=== PATIENT | male | born 1955 | race Caucasian/White ===

== ENCOUNTER 2020-01-27 05:56 | Emergency (ER) | payer MEDICARE, OTHER ==
[2020-01-27] MEDS ORDERED: Sodium Chloride 0.9% 10 ML Syringe FLUSH PRN (06:21)
[2020-01-27] MEDS ORDERED: Albuterol/Ipratropium 3.0-0.5 MG/3 ML Neb Soln NEB ONE (06:36)
--- NOTE | 2020-01-27 06:36 | EDM.PDOC ---
ED HPI GENERAL MEDICAL PROBLEM - General Chief Complaint: Respiratory Problem Stated Complaint: SOB Time Seen by Provider: 01/27/20 06:14 Source of Information: Reports: Patient, RN Notes Reviewed - History of Present Illness INITIAL COMMENTS - FREE TEXT/NARRATIVE: 64 year old male comes in very short of breath. He states this started yesterday, has become more severe during the night and this electronic specialist. He has had some nasal and sinus drainage for about the last 3 weeks but has not been coughing. Other than being short of breath he has no chest or abd pain. No fever or chills. Much more short of breath with exertion. - Related Data Allergies Allergy/AdvReac Type Severity Reaction Status Date / Time mold Allergy Cannot Verified 01/27/20 06:05 Remember Home Meds: Home Meds . [No Known Home Meds] 01/27/20 [History] Past Medical History HEENT History: Reports: Impaired Vision, Other (See Below) Other HEENT History: hearing loss, impacted cerumen, middle ear effusion, tinnitis, wear glasses, has hearing aids Cardiovascular History: Reports: High Cholesterol Respiratory History: Reports: Other (See Below) Other Respiratory History: upper respiratory infection Gastrointestinal History: Reports: Other (See Below) Other Gastrointestinal History: umbilical hernia repair Genitourinary History: Reports: Other (See Below) Other Genitourinary History: elevated PSA [employer] TECHNICIAN History: Reports: None Musculoskeletal History: Reports: Back Pain, Chronic, Other (See Below) Other Musculoskeletal History: right foot pain Neurological History: Reports: Neuropathy, Peripheral Psychiatric History: Reports: Depression Endocrine/Metabolic History: Reports: None Hematologic History: Reports: None Immunologic History: Reports: None Oncologic (Cancer) History: Reports: None Dermatologic History: Reports: Other (See Below) Other Dermatologic History: finger laceration, onchomycosis - Past Surgical History Head Surgeries/Procedures: Reports: None HEENT Surgical History: Reports: Cataract Surgery Cardiovascular Surgical History: Reports: None Respiratory Surgical History: Reports: None GI Surgical History: Reports: Colonoscopy, Other (See Below) Other GI Surgeries/Procedures: umbilical hernia Male Surgical History: Reports: None Endocrine Surgical History: Reports: None Neurological Surgical History: Reports: None Musculoskeletal Surgical History: Reports: Shoulder Surgery, Other (See Below) Other Musculoskeletal Surgeries/Procedures:: left knee surgery x 2, right lower leg surgery, right shoulder arthroscopy Oncologic Surgical History: Reports: None Dermatological Surgical History: Reports: None Social & Family History - Tobacco Use Smoking Status *Q: Former Smoker Used Tobacco, but Quit: Yes Month/Year Tobacco Last Used: 1972 - Caffeine Use Caffeine Use: Reports: Coffee - Recreational Drug Use Recreational Drug Use: No ED ROS GENERAL - Review of Systems Review Of Systems: See Below Constitutional: Denies: Fever, Chills HEENT: Reports: Sinus Problem (he has had some sinus kelsey. for the past few wks) Respiratory: Reports: Shortness of Breath, Other Cardiovascular: Reports: Dyspnea on Exertion. Denies: Chest Pain GI/Abdominal: Denies: Abdominal Pain, Hematochezia, Melena, Nausea, Vomiting Musculoskeletal: Denies: Shoulder Pain, Arm Pain, Back Pain Skin: Reports: Pallor Neurological: Reports: Dizziness. Denies: Trouble Speaking, Weakness ED EXAM, GENERAL - Physical Exam Exam: See Below General Appearance: Alert, Moderate Distress (moderate shortness of breath) Throat/Mouth: Normal Inspection Head: Atraumatic Neck: Supple Respiratory/Chest: Respiratory Distress. No: Rales, Rhonchi, Wheezing Cardiovascular: Tachycardia GI/Abdominal: Soft, Non-Tender, Distended Back Exam: No: CVA Tenderness (L), CVA Tenderness (R) Extremities: No: Pedal Edema, Leg Pain, Increased Warmth, Redness Neurological: Alert, Oriented, No Motor/Sensory Deficits Skin Exam: Warm, Dry, Pallor Course - Vital Signs Last Recorded V/S: Last Vital Signs Temp 98.3 F 01/27/20 06:06 Pulse 114 H 01/27/20 08:10 Resp 35 H 01/27/20 08:10 BP 145/103 H 01/27/20 08:10 Pulse Ox 91 L 01/27/20 08:10 - Orders/Labs/Meds Orders: Active Orders 24 hr Category Date Time Status EKG 12 Lead [EKG Documentation Completion] [] STAT Care 01/27/20 06:17 Active Oxygen Therapy Adult [Oxygen Therapy, ED] [] Care 01/27/20 06:18 Active ASDIRECTED Peripheral IV Care [RC] . DIRECTED Care 01/27/20 06:21 Active RT Aerosol Therapy [RC] ASDIRECTED Care 01/27/20 06:36 Active CULTURE BLOOD [BC] Stat Lab 01/27/20 06:30 Received Peripheral IV Insertion Adult [OM.PC] Stat Oth 01/27/20 06:21 Ordered Labs: Laboratory Tests 01/27/20 01/27/20 01/27/20 Range/Units 06:10 06:10 06:10 WBC 10.60 H (4.23-9.07) K/mm3 RBC 5.20 (4.63-6.08) M/mm3 Hgb 16.0 (13.7-17.5) gm/dl Hct 48.2 (40.1-51.0) % MCV 92.7 H (79.0-92.2) fl MCH 30.8 (25.7-32.2) pg MCHC 33.2 (32.2-35.5) g/dl RDW Std Deviation 46.9 H (35.1-43.9) fL Plt Count 240 (163-337) K/mm3 MPV 9.7 (9.4-12.3) fl Neut % (Auto) 68.0 H (34.0-67.9) % Lymph % (Auto) 20.1 L (21.8-53.1) % [place] % (Auto) 10.2 (5.3-12.2) % Eos % (Auto) 1.2 (0.8-7.0) Baso % (Auto) 0.3 (0.1-1.2) % Neut # (Auto) 7.21 H (1.78-5.38) K/mm3 Lymph # (Auto) 2.13 (1.32-3.57) K/mm3 [place] # (Auto) 1.08 H (0.30-0.82) K/mm3 Eos # (Auto) 0.13 (0.04-0.54) K/mm3 Baso # (Auto) 0.03 (0.01-0.08) K/mm3 D-Dimer, Quantitative (0.19-0.50) mg/L Sodium 142 (136-145) mEq/L Potassium 4.2 (3.5-5.1) mEq/L Chloride 105 (98-107) mEq/L Carbon Dioxide 24 (21-32) mEq/L Anion Gap 17.2 H (5-15) BUN 25 H (7-18) mg/dL Creatinine 1.3 (0.7-1.3) mg/dL Est Cr Clr Drug Dosing 56.80 mL/min Estimated GFR (MDRD) 55 (>60) mL/min BUN/Creatinine Ratio 19.2 H (14-18) Glucose 166 H (80-115) mg/dL Lactic Acid (0.4-2.0) mmol/L Calcium 9.7 (8.5-10.1) mg/dL Total Bilirubin 0.6 (0.2-1.0) mg/dL AST 33 (15-37) U/L ALT 49 (16-63) U/L Alkaline Phosphatase 69 (46-116) U/L Troponin I 1.457 H* (0.00-0.056) ng/mL C-Reactive Protein 1.0 (<1.0) mg/dL NT-Pro-B Natriuret Pep 853 H (0-125) pg/mL Total Protein 8.5 H (6.4-8.2) g/dl Albumin 4.3 (3.4-5.0) g/dl Globulin 4.2 gm/dL Albumin/Globulin Ratio 1.0 (1-2) 01/27/20 01/27/20 Range/Units 06:10 06:30 WBC (4.23-9.07) K/mm3 RBC (4.63-6.08) M/mm3 Hgb (13.7-17.5) gm/dl Hct (40.1-51.0) % MCV (79.0-92.2) fl MCH (25.7-32.2) pg MCHC (32.2-35.5) g/dl RDW Std Deviation (35.1-43.9) fL Plt Count (163-337) K/mm3 MPV (9.4-12.3) fl Neut % (Auto) (34.0-67.9) % Lymph % (Auto) (21.8-53.1) % [place] % (Auto) (5.3-12.2) % Eos % (Auto) (0.8-7.0) Baso % (Auto) (0.1-1.2) % Neut # (Auto) (1.78-5.38) K/mm3 Lymph # (Auto) (1.32-3.57) K/mm3 [place] # (Auto) (0.30-0.82) K/mm3 Eos # (Auto) (0.04-0.54) K/mm3 Baso # (Auto) (0.01-0.08) K/mm3 D-Dimer, Quantitative 14.38 H (0.19-0.50) mg/L Sodium (136-145) mEq/L Potassium (3.5-5.1) mEq/L Chloride (98-107) mEq/L Carbon Dioxide (21-32) mEq/L Anion Gap (5-15) BUN (7-18) mg/dL Creatinine (0.7-1.3) mg/dL Est Cr Clr Drug Dosing mL/min Estimated GFR (MDRD) (>60) mL/min BUN/Creatinine Ratio (14-18) Glucose (80-115) mg/dL Lactic Acid 2.6 H* (0.4-2.0) mmol/L Calcium (8.5-10.1) mg/dL Total Bilirubin (0.2-1.0) mg/dL AST (15-37) U/L ALT (16-63) U/L Alkaline Phosphatase (46-116) U/L Troponin I (0.00-0.056) ng/mL C-Reactive Protein (<1.0) mg/dL NT-Pro-B Natriuret Pep (0-125) pg/mL Total Protein (6.4-8.2) g/dl Albumin (3.4-5.0) g/dl Globulin gm/dL Albumin/Globulin Ratio (1-2) Meds: Medications Discontinued Medications Generic Name Dose Route Start Last Admin Trade Name Ashleigh PRN Reason Stop Dose Admin Albuterol/Ipratropium 3 ml 01/27/20 06:36 01/27/20 06:40 Duoneb 3.0-0.5 Mg/3 Ml NEB 01/27/20 06:37 3 ml ONETIME ONE Administration Heparin Sodium (Porcine) 4,000 units 01/27/20 06:54 01/27/20 06:59 Heparin Sodium IVPUSH 01/27/20 06:55 4,000 units ONETIME ONE Administration Heparin Sodium (Porcine) 4,000 units 01/27/20 07:01 01/27/20 07:16 Heparin Sodium IVPUSH 01/27/20 07:02 4,000 units .BOLUS ONE Administration Heparin Sodium/Dextrose 25,000 units in 500 mls @ 27.216 mls/hr 01/27/20 07: 15 01/27/20 07:17 Heparin 25,000 Units In D5w 500 Ml IV 12 units/kg/hr TITRATE YAEL 27.216 mls/hr Administration Protocol 12 UNITS/KG/HR Sodium Chloride 45 mls @ 40 mls/hr 01/27/20 07:15 Normal Saline IV ASDIRECTED YAEL Sodium Chloride Confirm 01/27/20 08:01 01/27/20 08:34 Normal Saline Administered 01/27/20 08:02 150 mls/hr Dose Administration 1,000 mls @ as directed .ROUTE .STK-MED ONE Iopamidol 100 ml 01/27/20 07:14 Isovue Multipack-370 (76%) IVPUSH 01/27/20 07:15 ONETIME ONE Sodium Chloride 10 ml 01/27/20 06:21 01/27/20 06:23 Saline Flush FLUSH 10 ml ASDIRECTED PRN Administration Keep Vein Open - Re-Assessments/Exams Free Text/Narrative Re-Assessment/Exam: 01/27/20 07:30. Trop came back elevated at about 1.4. D Dimer came back very elevated at 14.3. Heparin bolus given, on Heparin drip. With 02 6 L NC he is sating 90 to 92, BP 145/103, heart rate 116. I have discussed with Dr Richardson , [facility]'s ED who does accept pt in transfer. We are going to send him by rotor for the sake of much shorter time of transfer. IR may be a consideration , Radiology report of CT Pul angio done a few minutes ago is pending. Departure - Departure Time of Disposition: 07:25 Disposition: DC/Tfer to Acute Hospital 02 Condition: Serious Clinical Impression: Pulmonary embolism Qualifiers: Pulmonary embolism type: unspecified Chronicity: acute Acute cor pulmonale presence: unspecified Qualified Code(s): I26.99 - Other pulmonary embolism without acute cor pulmonale - Discharge Information Referrals: PCP,None [Primary Care Provider] - Forms: ED Department Discharge Sepsis Event Note - Evaluation Sepsis Screening Result: Possible Sepsis Risk - Focused Exam Date Exam was Performed: 01/28/20 Time Exam was Performed: 06:08 - My Orders Last 24 Hours: My Active Orders 01/27/20 06:17 EKG 12 Lead [EKG Documentation Completion] [RC] STAT 01/27/20 06:18 Oxygen Therapy Adult [Oxygen Therapy, ED] [RC] ASDIRECTED 01/27/20 06:21 Peripheral IV Care [RC] . DIRECTED Peripheral IV Insertion Adult [OM.PC] Stat 01/27/20 06:30 CULTURE BLOOD [BC] Stat 01/27/20 06:36 RT Aerosol Therapy [RC] ASDIRECTED - Assessment/Plan Last 24 Hours: My Active Orders 01/27/20 06:17 EKG 12 Lead [EKG Documentation Completion] [RC] STAT 01/27/20 06:18 Oxygen Therapy Adult [Oxygen Therapy, ED] [RC] ASDIRECTED 01/27/20 06:21 Peripheral IV Care [RC] . DIRECTED Peripheral IV Insertion Adult [OM.PC] Stat 01/27/20 06:30 CULTURE BLOOD [BC] Stat 01/27/20 06:36 RT Aerosol Therapy [RC] ASDIRECTED
[2020-01-27] MEDS ORDERED: Heparin Sodium 5,000 Units/ML Vial IVPUSH ONE ×2 (06:54→07:01)
--- NOTE | 2020-01-27 06:59 | CR ---
Chest: Portable view of the chest was obtained. Comparison: Prior chest x-ray is not available. Heart size and mediastinum are normal. Lungs are clear with no acute parenchymal change. Bony structures are grossly intact. Impression: 1. Nothing acute is seen on portable chest x-ray. Diagnostic code #1 This report was dictated in MDT
[2020-01-27] MEDS ORDERED: Iopamidol 755 MG/ML 500 ML Multipack Bottle IVPUSH ONE (07:14)
[2020-01-27] MEDS ORDERED: Sodium Chloride 0.9% 45 ML IV SCH (07:15)
[2020-01-27] MEDS ORDERED: Heparin Sodium/D5W 25,000 UNITS/500 ML BAG IV SCH (07:15)
--- NOTE | 2020-01-27 07:52 | CT ---
CT chest Technique: Multiple axial sections were obtained from above the lung apices inferiorly through the lung bases. Intravenous contrast was utilized. Study performed as a pulmonary angiogram protocol. Comparison: No prior chest CT is available, chest x-ray performed earlier on the same day (6:08 AM). Findings: Prominent pulmonary emboli are identified within the distal right and left main pulmonary arteries. Pulmonary embolism extends into the segmental and subsegmental branches of both lower lobes. Subsegmental and segmental clot also seen within the left upper lung and right upper lung. Right ventricle is dilated compatible with right heart strain. Visualized upper abdominal structures shows a small hiatal hernia. Lungs show no acute parenchymal change. No pleural effusions are noted. Bone window settings were reviewed which show no acute osseous finding. Impression: 1. Extensive pulmonary embolism involving the distal main pulmonary arteries as well as segmental and subsegmental branches of both upper and lower lungs. 2. Evidence of right heart strain with enlarged right ventricle. 3. Small hiatal hernia. Diagnostic code #5 This report was dictated in MDT
[2020-01-27] MEDS ORDERED: Sodium Chloride 0.9% 1,000 ML ONE (08:01)
== END 2020-01-27 08:15 ==
LOC: JD.ED 05:56
DX: I26.99 Other pulmonary embolism without acute cor pulmonale (principal); Z87.891 Personal history of nicotine dependence; Z91.048 Other nonmedicinal substance allergy status
CPT/HCPCS: 36415; 71045; 71275; 80053; 83605; 83880; 84484; 85025; 85379; 86140; 87040; 93005; 96365; 99285; J1644; J7030; 93010; 99284; J7620-GY

== ENCOUNTER 2022-09-01 12:08 | Emergency (ER) | payer OTHER, MEDICARE | END 2022-09-01 15:12 | disposition home or self-care (01) | LOC: JD.ED 12:08 | DX: S49.91XA Unspecified injury of right shoulder and upper arm, initial encounter (principal); R20.2 Paresthesia of skin; Z91.048 Other nonmedicinal substance allergy status; V53.9XXA Unspecified occupant of pick-up truck or van injured in collision with car, pick-up truck or van in traffic accident, initial encounter; Y92.410 Unspecified street and highway as the place of occurrence of the external cause | CPT/HCPCS: 70450; 70450-26; 73030-26-RT; 73030-RT; 99284 ==

== ENCOUNTER 2023-02-25 10:30 | Emergency (ER) | payer MEDICARE, OTHER ==
[2023-02-25] MEDS ORDERED: Sodium Chloride 0.9% 10 ML Syringe FLUSH PRN (11:18)
[2023-02-25] MEDS ORDERED: Iopamidol 612 MG/ML 100 ML Bottle ONE (11:54)
== END 2023-02-25 14:42 | disposition home or self-care (01) ==
LOC: JD.ED 10:30
DX: K57.32 Diverticulitis of large intestine without perforation or abscess without bleeding (principal); Z91.048 Other nonmedicinal substance allergy status
CPT/HCPCS: 36415; 74177; 80053; 85025; 99284; J3490; Q9967; 99283